=== PATIENT | female | born 1940 | race Caucasian/White ===

== ENCOUNTER 2018-11-05 19:22 | Inpatient (IN) | payer MEDICARE, OTHER ==
[~2018-11-05] VITALS: Ht 167.6 cm; Wt 73.5 kg
[2018-11-05] MEDS ORDERED: PRED20TA PO (19:45)
[2018-11-05] MEDS ORDERED: AZIT-12 PO (19:45)
[2018-11-05] MEDS ORDERED: PARO10TA3 PO (19:45)
[2018-11-05] MEDS ORDERED: NAPR-885 PO (19:45)
[2018-11-05] MEDS ORDERED: VITAD1000T PO (19:46)
[2018-11-05] MEDS ORDERED: MORPHINE 2 MG/ML 1ML SYRINGE (J2270) IV ONE (20:15)
[2018-11-05 20:29] LABS: BASO % 0.3 % (0.0-1.0); HEMATOCRIT 45.7 % (36.0-47.0); LYMPH # 0.5 10^3/uL (1.5-4.5); LYMPH % 4.7 % (24.0-44.0); MEAN CORPUSCULAR HEMOGLOBIN 29.6 pg (27.0-33.0); MEAN CORPUSCULAR HGB CONC 32.8 g/dl (32.0-36.5); MEAN CORPUSCULAR VOLUME 90.1 fl (80.0-96.0); MONO # 0.1 10^3/uL (0.0-0.8); NEUTROPHILS # 9.1 10^3/uL (1.8-7.7); NEUTROPHILS % 92.1 % (36.0-66.0); PLATELET COUNT, AUTOMATED 357 10^3/uL (150-450); RED BLOOD COUNT 5.07 10^6/uL (4.00-5.40); WHITE BLOOD COUNT 9.9 10^3/uL (4.0-10.0)
[2018-11-05 20:33] LABS: INR 1.01; PARTIAL THROMBOPLASTIN TIME 22.6 SECONDS (25.0-38.4)
[2018-11-05 20:41] LABS: BLOOD UREA NITROGEN 24 MG/DL (7-18); CALCIUM LEVEL 9.1 MG/DL (8.8-10.2); CARBON DIOXIDE LEVEL 32 MEQ/L (21-32); CHLORIDE LEVEL 101 MEQ/L (98-107); CREATININE FOR GFR 0.92 MG/DL (0.55-1.30); GLOMERULAR FILTRATION RATE > 60.0 (>39); GLUCOSE, FASTING 295 MG/DL (70-100); POTASSIUM SERUM 5.1 MEQ/L (3.5-5.1); SODIUM LEVEL 139 MEQ/L (136-145)
[2018-11-05] MEDS: HumaLOG INSULIN (NovoLOG) PER UNIT SC SCH (21:00)
[2018-11-05] MEDS: DOCUSATE SODIUM 100 MG CAP PO SCH (21:00)
--- NOTE | 2018-11-05 21:13 | REPVR ---
EXAM: CT Left Lower Extremity Without Contrast. Hip EXAM DATE/TIME: 11/05/2018 8:18 PM CLINICAL HISTORY: 78 years old, female; Injury or trauma; Fall; Initial encounter; Blunt trauma; Hip; Left; Additional info: Tr TECHNIQUE: Imaging protocol: CT of the Left lower extremity without contrast was performed. Exam focused on the hip. Coronal and sagittal reformatted images were created and reviewed. Radiation optimization: All CT scans at this facility use at least one of these dose optimization techniques: automated exposure control; mA and/or kV adjustment per patient size (includes targeted exams where dose is matched to clinical indication); or iterative reconstruction. COMPARISON: No relevant prior studies available. FINDINGS: Bones/joints: There is irregular transcervical fracture of the left femoral neck. There is severe varus angulation at the fracture site. There is osteopenia. There is a moderate amount of left joint effusion/serous effusion. Soft tissues: Normal. Bowel: There is moderate constipation. IMPRESSION: Fracture of the left femoral neck with severe varus angulation. Electronically signed by: Mp Linares On 11/05/2018 21:13:07 PM
--- NOTE | 2018-11-05 21:31 | REPVR ---
EXAM: CT Head Without Contrast EXAM DATE/TIME: 11/05/2018 8:18 PM CLINICAL HISTORY: 78 years old, female; Injury or trauma; Fall; Initial encounter; Blunt trauma (contusions or hematomas); Consciousness not specified; Additional info: Tr TECHNIQUE: Imaging protocol: Axial computed tomography images of the head without contrast. Radiation optimization: All CT scans at this facility use at least one of these dose optimization techniques: automated exposure control; mA and/or kV adjustment per patient size (includes targeted exams where dose is matched to clinical indication); or iterative reconstruction. COMPARISON: No relevant prior studies available. FINDINGS: Brain: There is no evidence of intracranial bleed. There are patchy areas of low density in the periventricular white matter consistent with chronic ischemic changes. Ventricles: Normal. No ventriculomegaly. Bones/joints: There is no evidence of fracture. Sinuses: Clear paranasal sinuses. Mastoid air cells: Clear mastoid air cells. Soft tissues: Unremarkable. IMPRESSION: 1. No evidence of fracture. 2. Chronic ischemic changes. Electronically signed by: Mp Linares On 11/05/2018 21:31:09 PM
--- NOTE | 2018-11-05 21:45 | REPVR ---
EXAM: CT Cervical Spine Without Contrast EXAM DATE/TIME: 11/05/2018 8:18 PM CLINICAL HISTORY: 78 years old, female; Injury or trauma; Fall; Initial encounter; Blunt trauma; Additional info: Tr TECHNIQUE: Imaging protocol: Axial computed tomography images of the cervical spine without contrast. Coronal and sagittal reformatted images were created and reviewed. Radiation optimization: All CT scans at this facility use at least one of these dose optimization techniques: automated exposure control; mA and/or kV adjustment per patient size (includes targeted exams where dose is matched to clinical indication); or iterative reconstruction. COMPARISON: No relevant prior studies available. FINDINGS: Vertebrae: There is mild retrolisthesis of C4 on C5 consistent with degenerative changes. The cervical vertebra otherwise are in alignment. The facet joints appear in alignment. There is no evidence of fracture. The dens appears intact and the lateral masses of C1 appear symmetric Discs/Spinal canal/Neural foramina: There is severe narrowing of the right C4 neural foramina secondary to facet hypertrophy and osteophyte formation. There is severe narrowing of the C6 neural foramina bilaterally secondary to facet hypertrophy and osteophyte formation. There is moderate narrowing of the C4-C5, C5-C6 disc spaces. There is moderate posterior disc protrusion C3-C4. There is moderate posterior osteophyte formation C4-C5 and C5-6. There is also severe neural foramina narrowing C7 bilaterally secondary to osteophyte formation. Soft tissues: There is no evidence of soft tissue swelling. Lungs: There is scarring in the apical portions of the lung. IMPRESSION: 1. Degenerative changes as described above. 2. No evidence of fracture. Electronically signed by: Mp Linares On 11/05/2018 21:45:25 PM
--- NOTE | 2018-11-05 21:45 | HPEPDOC ---
General Date of Admission 11/05/18 Date of Service: Nov 05, [address] Newman Attending Physician: KESHIA BARRAGAN DO Chief Complaint The patient is a 78-year-old female admitted with a reason for visit of FALL. Source: Patient, Family Exam Limitations: No limitations Timing/Duration: 4-6 hours, This evening Associated Symptoms: Cough, Shortness of breath, Mechanical fall History of Present Illness 78 yo female was sitting on a pillow on a high kitchen stool preparing dinner when she slipped backwards and fell off stool fracturing left hip at approx 530pm. no syncope, no LOC, no WARREN, no N, noV, no CP. Her last normal stool this AM. States minimal hip pain. Patient states has chronic SOB and chronic yellow cough (which jd edwards has placed her on azithromycin every 3 days) Home Medications Scheduled Abatacept (Orencia Clickjet) 125 Mg/1 Ml Auto.injct, 125 MG SC QWEEK, (Reported) Azithromycin (Azithromycin) 250 Mg Tablet, 250 MG PO 3XW, (Reported) QHS ON WEDNESDAY, WEDNESDAY, WEDNESDAY Megestrol Acetate (Megestrol Acetate) 400 Mg/10 Ml Oral.susp, 600 MG PO DAILY, (Reported) Naproxen (Naproxen) 500 Mg Tablet, 500 MG PO DAILY, (Reported) Paroxetine HCl (Paroxetine HCl) 20 Mg Tablet, 20 MG PO DAILY, (Reported) Prednisone (Prednisone) 20 Mg Tablet, 20 MG PO DAILY, (Reported) Vitamin D (Vitamin D3) 1,000 Unit Tablet, 1,000 UNITS PO DAILY, (Reported) Allergies Coded Allergies: No Known Allergies (Unverified , 11/05/18) Past Medical History Medical History Benign essential Tremor Rheumatoid Arthritis 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 Past surgical history: 4 plastic knuckles to right hand bunionectomy 1 oopherectomy left rotator cuff repair Social History: no tobacco, occasional EtOH, ; lives near [facility] and is vacationing in area currently Family History: Brother alive with DM Father age 66 DM complications Mother CVA A-FIB/CHADSVASC A-FIB History Current/History of A-Fib/PAF?: No Review of Systems Other systems 10 comprehensive systems reviewed and negative except as per HPI Physical Examination General Exam: Positive: Alert, Cooperative, No Acute Distress Eye Exam: Positive: PERRLA, Conjunctiva & lids normal, EOMI ENT Exam: Positive: Atraumatic, Mucous membr. moist/pink, Pharynx Normal Neck Exam: Positive: Supple, +2 carotid pulse wo bruit Chest Exam: Positive: Clear to auscultation (anteriorly), Rales Heart Exam: Positive: Rate Normal, Regular Rhythm, Normal S1, Normal S2; Negative: Murmurs Telemetry: Positive: No significant arrhythmia Abdomen Exam: Positive: Normal bowel sounds, Soft (NT ND) Extremity Exam: Positive: Normal pulses, Other (left leg shorter and outward turned than right leg); Negative: Clubbing, Cyanosis, Edema Skin Exam: Positive: Nl turgor and temperature, Other skin issue (Abrasion left pretibial area) Neuro Exam: Positive: Normal Speech, Normal Tone, Sensation Intact, Cranial Nerves 3-12 NL Psych Exam: Positive: Mental status NL, Mood NL, Oriented x [address] physical findings HEAD CT IMPRESSION: 1. No evidence of fracture. 2. Chronic ischemic changes. NECK CT: HIP CT:IMPRESSION: Fracture of the left femoral neck with severe varus angulation. Vital Signs Vital Signs Date Time Temp Pulse Resp B/P (MAP) Pulse Ox O2 Delivery O2 Flow Rate FiO2 11/05/18 21:30 88 16 142/71 (94) 97 Nasal Cannula 2.0 11/05/18 19:30 96.9 Laboratory Data Labs 24H Laboratory Tests 2 11/05/18 19:55: Immature Granulocyte % (Auto) 1.9, White Blood Count 9.9, Red Blood Count 5.07, Hemoglobin 15.0, Hematocrit 45.7, Mean Corpuscular Volume 90.1, Mean Corpuscular Hemoglobin 29.6, Mean Corpuscular Hemoglobin Concent 32.8, Red Cell Distribution Width 14.5, Platelet Count 357, Neutrophils (%) (Auto) 92.1H, Lymphocytes (%) (Auto) 4.7L, Monocytes (%) (Auto) 1.0, Eosinophils (%) (Auto) 0.0, Basophils (%) (Auto) 0.3, Neutrophils # (Auto) 9.1H, Lymphocytes # (Auto) 0.5L, Monocytes # (Auto) 0.1, Eosinophils # (Auto) 0.0, Basophils # (Auto) 0.0, Nucleated Red Blood Cells % (auto) 0.0, Prothrombin Time 13.0, Prothromb Time International Ratio 1.01, Activated Partial Thromboplast Time 22.6L, Anion Gap 6L, Glomerular Filtration Rate > 60.0, Blood Urea Nitrogen 24H, Creatinine 0.92, Sodium Level 139, Potassium Level 5.1, Chloride Level 101, Carbon Dioxide Level 32, Calcium Level 9.1 CBC/BMP Laboratory Tests 11/05/18 19:55 Red Blood Count 5.07, Mean Corpuscular Volume 90.1, Mean Corpuscular Hemoglobin 29.6, Mean Corpuscular Hemoglobin Concent 32.8, Red Cell Distribution Width 14.5, Neutrophils (%) (Auto) 92.1 H, Lymphocytes (%) (Auto) 4.7 L, Monocytes (%) (Auto) 1.0, Eosinophils (%) (Auto) 0.0, Basophils (%) (Auto) 0.3, Neutrophils # (Auto) 9.1 H, Lymphocytes # (Auto) 0.5 L, Monocytes # (Auto) 0.1, Eosinophils # (Auto) 0.0, Basophils # (Auto) 0.0, Calcium Level 9.1 Assessment/Plan 1) Fracture of the left femoral neck with severe varus angulation. - admit med/surg; ortho consulted (Dr Hamilton) thru the ED. Plan for surgery early next week (wednesday?) ; morphine prn pain control. Will need pulmonary clearance prior to surgery. 2) Osteoporosis 3) S/P Mechanical fall prior to admission 4) Elevated blood sugar due to prednisone - r/o diabetes - check HgA1c in AM. cover with low dose SSI. 5) Pulmonary fibrosis - consider pulmonary consult for clearance and optimization prior to surgery; continue with azithromycin every 3 days. 6) Rheumatoid arthritis - last dose of Orencia was 11/04/18. Is on chronic prednisone 20mg daily (will continue for now and then after seen by pulmonary, consider taper vs continued dose which may delay healing post operatively). Disposition - patient and want to have rehab and follow up hospital care closer to home. If extended hospitalization or rehab needed, then they prefer to be transferred closer to [place] CODE STATUS: DNR/DNI - patient has MOLST form at home but she has not yet filled it out. Discussion regarding code status, heroic measures, life support, CPR etc held with and patient. Patient appears realistic about severity of her Pulm fibrosis, RA and osteoporosis and requests DNR/DNI but is hesitant to complete MOLST FORM in hospital Plan / VTE VTE Prophylaxis Ordered?: Yes Plan Advanced Directives: Do Not Resuscitate (DNR), Do Not Intubate (DNI) KESHIA BARRAGAN DO Nov 05, 2018 21:42
[2018-11-05] MEDS ORDERED: GLUCOSE 4 GM CHEW TABLET PO PRN (22:00)
[2018-11-05] MEDS ORDERED: MOM 30ML SUSPENSION UDC PO PRN (22:00)
[2018-11-05] MEDS ORDERED: DEXTROSE 50% 50 ML SYRINGE IV PRN (22:00)
[2018-11-05] MEDS ORDERED: MAALOX 30 ML SUSP *UDC PO PRN (22:00)
[2018-11-05] MEDS ORDERED: GLUCAGON FOR INJ 1 MG VIAL (J1610) SC PRN (22:00)
[2018-11-05] MEDS ORDERED: PARO20TA3 PO (22:03)
[2018-11-05] MEDS ORDERED: OREN125I2 SC (22:03)
[2018-11-05] MEDS ORDERED: MEGE400S10 PO (22:03)
[2018-11-05] MEDS: HEPARIN SOD (PORCINE) 5000 UNITS/ML VIAL SC SCH (22:18)
[2018-11-05 23:40] VITALS: BP 164/85
[2018-11-06] VITALS (9 sets, daily range): BP systolic 94–164; BP diastolic 58–107
[2018-11-06] MEDS: ACETAMINOPHEN TAB 650MG DOSE (2X325MG) PO PRN ×2 (00:10→20:52)
[2018-11-06] MEDS: MORPHINE 4 MG/ML 1ML VIAL/SYRINGE (J2270) IV PRN ×3 (01:35→13:33)
[2018-11-06 07:12] LABS: HEMATOCRIT 44.6 % (36.0-47.0); HEMOGLOBIN 14.7 g/dl (12.0-15.5); MEAN CORPUSCULAR HEMOGLOBIN 29.9 pg (27.0-33.0); MEAN CORPUSCULAR VOLUME 90.8 fl (80.0-96.0); PLATELET COUNT, AUTOMATED 308 10^3/uL (150-450); RED BLOOD COUNT 4.91 10^6/uL (4.00-5.40)
[2018-11-06 07:37] LABS: HEMOGLOBIN A1c 7.8 %
[2018-11-06 07:41] LABS: ALBUMIN 2.5 GM/DL (3.2-5.2); ALT/SGPT 35 U/L (12-78); BILIRUBIN,TOTAL 0.8 MG/DL (0.2-1.0); BLOOD UREA NITROGEN 19 MG/DL (7-18); CALCIUM LEVEL 8.7 MG/DL (8.8-10.2); CARBON DIOXIDE LEVEL 32 MEQ/L (21-32); CHLORIDE LEVEL 102 MEQ/L (98-107); CREATININE FOR GFR 0.72 MG/DL (0.55-1.30); GLOMERULAR FILTRATION RATE > 60.0 (>39); GLUCOSE, FASTING 151 MG/DL (70-100); POTASSIUM SERUM 3.7 MEQ/L (3.5-5.1); SODIUM LEVEL 138 MEQ/L (136-145); TOTAL PROTEIN 6.1 GM/DL (6.4-8.2)
[2018-11-06] MEDS: VITAMIN D 1,000 INTERNATIONAL UNITS TABLET PO SCH (08:41)
[2018-11-06] MEDS: PARoxetine 20 MG TAB PO SCH (08:42)
[2018-11-06] MEDS: DOCUSATE SODIUM 100 MG CAP PO SCH ×2 (08:42→20:51)
[2018-11-06] MEDS: HumaLOG INSULIN (NovoLOG) PER UNIT SC SCH ×4 (08:42→20:58)
[2018-11-06] MEDS: HEPARIN SOD (PORCINE) 5000 UNITS/ML VIAL SC SCH ×2 (08:43→20:51)
[2018-11-06] MEDS ORDERED: predniSONE 20 MG TAB PO SCH (09:00)
--- NOTE | 2018-11-06 11:53 | IPNPDOC ---
Text Note Date of Service The patient was seen on 11/06/18. NOTE Subjective: Patient is a 78-year-old female with a PMHx of Pulmonary fibrosis (oxygen dependent on 4L O2, steroid dependent on 20mg Prednisone), RA, Osteo porosis, Anxiety, Benign essential tremor who presents to the emergency room after she had slipped and fell off of her stool while at home. Patient sustained severe left hip pain and came to ER for further evaluation. Imaging revealed she had a fracture of her left hip. Hospitalist service was called for further evaluation and treatment. Surgery was called on consultation. Patient was seen and examined at the bedside. Currently, patient reports that they're still expressing left hip pain with movement. They deny chest pain, shortness breath or palpitations. They deny abdominal pain, constipation, or discomfort with urination. Objective: Vitals (See below) General: Lying in bed, no acute distress, comfortable, AAOx3 HEENT: NC, AT CVS: RRR, +S1S2 Lungs: Fair air entry b/l, -w/r/r Abdomen: Soft, ND, NT Extremities: - Edema, - Calf tenderness, left leg with external rotation and slightly shorter than right leg Assessment and plan: Left hip pain - 2/2 fracture of the left femoral neck with severe varus angulation - likely 2/2 mechanical fall - Patient fallen off of a stool while in her kitchen - Physical reveals severe left hip tenderness - CT extremity 11/05: Fracture of the left femoral neck with severe varus angulation. - Orthopedic surgery has been called on consultation; despite potential surgery on Wednesday - Given patient's pulmonary fibrosis and corticosteroid dependence; will consult pulmonary for optimization Mechanical fall - CT head 11/05:1. No evidence of fracture. 2. Chronic ischemic changes. - CT cervical spine 11/05: 1. Degenerative changes as described above. 2. No evidence of fracture. - Edema. Pain control Pulmonary fibrosis - No evidence of exacerbation at this time - Patient is oxygen dependent at 4 L of nasal cannula - Patient is corticosteroid dependent with prednisone 20 mg - Continue with inhaled therapy as ordered - Pulmonary consulted New onset diabetes - A1c of 7.8 - Will continue with insulin sliding scale while inpatient - Will adjust diet to consist carbohydrate diet RA - Patient receives infusions of Abatacept as an outpatient - Continue with prednisone Osteoporosis Anxiety - c/w paroxetine Vitamin D deficiency - Continue with supplementation Benign essential tremor DVT prophylaxis - c/w Heparin VS,Fishbone, I+O VS, Fishbone, I+O Laboratory Tests 11/05/18 19:55 Red Blood Count 5.07, Mean Corpuscular Volume 90.1, Mean Corpuscular Hemoglobin 29.6, Mean Corpuscular Hemoglobin Concent 32.8, Red Cell Distribution Width 14.5, Neutrophils (%) (Auto) 92.1 H, Lymphocytes (%) (Auto) 4.7 L, Monocytes (%) (Auto) 1.0, Eosinophils (%) (Auto) 0.0, Basophils (%) (Auto) 0.3, Neutrophils # (Auto) 9.1 H, Lymphocytes # (Auto) 0.5 L, Monocytes # (Auto) 0.1, Eosinophils # (Auto) 0.0, Basophils # (Auto) 0.0, Calcium Level 9.1 11/06/18 07:01 Red Blood Count 4.91, Mean Corpuscular Volume 90.8, Mean Corpuscular Hemoglobin 29.9, Mean Corpuscular Hemoglobin Concent 33.0, Red Cell Distribution Width 14.4, Calcium Level 8.7 L, Aspartate Amino Transf (AST/SGOT) 19, Alanine Aminotransferase (ALT/SGPT) 35, Alkaline Phosphatase 64, Total Bilirubin 0.8, Total Protein 6.1 L, Albumin 2.5 L Vital Signs Date Time Temp Pulse Resp B/P (MAP) Pulse Ox O2 Delivery O2 Flow Rate FiO2 11/06/18 06:24 18 4.0 11/06/18 06:00 98.3 80 120/70 (87) 99 11/05/18 22:15 Nasal Cannula I&O- Last 24 Hours up to 6 AM 11/06/18 06:00 Intake Total 0 ml Output Total 600 ml Balance -600 ml LAZARO KINGSLEY MD Nov 06, 2018 11:53
--- NOTE | 2018-11-06 14:03 | REP ---
Clinical: Trauma. Fracture. Technique: AP and cross-table lateral views of the left hip. Findings: Displaced left femoral neck fracture. Impression: Acute displaced left femoral neck fracture. Electronically Signed by Dada Foreman MD 11/06/2018 07:50 A
--- NOTE | 2018-11-06 14:03 | REP ---
Clinical: Hip fracture. Comparison: Single AP view of the chest. Findings: The cardiac silhouette is grossly normal for portable technique. The lung chin demonstrate diffuse chronic interstitial changes with scattered fibrosis and scarring. Subtle superimposed infiltrates as well as possible small pleural reactions cannot be excluded. No pneumothorax. Skeletal structures are intact. Impression: Presumed chronic interstitial changes and fibrosis/scarring. No prior exams for comparison. Electronically Signed by Dada Foreman MD 11/06/2018 07:48 A
--- NOTE | 2018-11-06 16:21 | CR ---
DATE OF CONSULTATION: 11/06/[address] nAgeles to evaluate Ms. Aleman for preoperative pulmonary optimization. HISTORY OF PRESENT ILLNESS: Ms. Aleman is a 78-year-old white female who presented to the emergency department last evening after falling off a stool, approximately 4 feet high, while she was chopping vegetables. She fell and fractured her left hip. The time of the fall was approximately 5:30 p.m. No syncope. No loss of consciousness. No headache. She felt well prior to this event. The plan is for surgery tomorrow afternoon. Because of her history of pulmonary fibrosis, pulmonary was asked to see her for optimization. Ms. Aleman follows with refrigeration engineer, Dr. Rubens Sidhu, in [place]. She was diagnosis with pulmonary fibrosis approximately two and a half years ago. The etiology for her pulmonary fibrosis is thought secondary to rheumatoid arthritis plus or minus a contribution from methotrexate. At her baseline, she notes dyspnea on exertion. She believes she could walk approximately 1/4 of a block very slowly. Most of her limitary is respiratory, though her joints have limited her at times. She notes a daily cough. Most of the time she swallows her secretions; but if she expectorates, it is yellow. When she last saw Dr. Rubens Sidhu, in June 2018, she was started on prednisone 20 mg daily. Because of her cough and fear of developing an infection, she was started on azithromycin every Wednesday, Wednesday, Wednesday. She has been on and off prednisone for many years. She believes she has been on prednisone most of the past year. She denies chest pain or pressure. No paroxysmal nocturnal dyspnea (PND) or orthopnea. No lower extremity edema or history of deep vein thrombosis (DVT). No gastroesophageal reflux disease (GERD) symptoms. No persistent fevers, chills or drenching night sweats. In regards to her rheumatoid arthritis, she has been on methotrexate in the past. She has been on prednisone for this process. She has never been on Gold or Plaquenil. She has been on Humira and more recently Abatacept. She has been on oxygen continuously for 18 months to 2 years. She has been diagnosed with pneumonia two to three times in the past, never hospitalized. She has been diagnosed with bronchitis two to three times in her life. There has not been concerned regarding possible asthma in the past. She has been tried on different "puffers" with no change in her symptoms. ALLERGIES: No known drug allergies. MEDICATIONS ON ADMISSION: - abatacept 125 mg subcutaneous every week - azithromycin 250 mg by mouth every Wednesday, Wednesday, Wednesday - megestrol 600 mg by mouth daily - Naproxen 500 mg by mouth daily - paroxetine 20 mg by mouth daily - prednisone 20 mg by mouth daily - vitamin D 1000 mg by mouth daily PAST MEDICAL HISTORY: 1. Rheumatoid arthritis, diagnosis in 1968. (a). Past medications include Humira, methotrexate, prednisone, and abatacept. 2. Pulmonary fibrosis felt secondary to rheumatoid arthritis plus or minus methotrexate (a). On chronic prednisone at 20 mg daily for six months. (b). On every Wednesday, Wednesday, Wednesday azithromycin for 6 months. (c). Follows with Dr. Rubens Sidhu in [place]. 3. Osteoporosis. 4. Anxiety. 5. Benign essential tremor. 6. Status post four plastic knuckles in her right hand secondary to rheumatoid arthritis 7. Status post bunionectomy. 8. Status post oophorectomy. 9. Status post left rotator cuff repair. SOCIAL HISTORY: Ms. Aleman lives near [place], [place] and is vacationing in this region. She does not smoke. Rare alcohol usage. She is and lives with her . FAMILY HISTORY: Her brother is alive and has diabetes mellitus. Her father is and at age 66 from complications of diabetes mellitus. Her mother from a cerebrovascular accident (CVA). REVIEW OF SYSTEMS: Per history of present illness. Remainder of review of systems is negative. PHYSICAL EXAMINATION: GENERAL: Ms. Aleman is lying in bed in no acute distress. She can complete full sentences. No cough on evaluation. VITAL SIGNS: Temperature 98.3 which is her T-max, pulse 80, respiratory rate 18, blood pressure 120/70 with a MAP 87. SPO2 99% on 4 liters. HEENT: Anicteric. Pupils equal, round, and reactive to light and accommodation (PERRLA) Nares: Patent bilaterally. Moist mucosa. Oropharynx clear, no lesions. Fair dentition. NECK: Supple, without jugular venous distension (JVD), thyromegaly or masses, trachea is midline. LYMPH: Without cervical or supraclavicular lymphadenopathy. CHEST: Normal shape. LUNGS: Symmetric excursion, diffuse inspiratory Velcro crackles. No wheeze or rhonchi. Normal I:E. No accessory muscle usage or retractions. CARDIOVASCULAR: Regular rate and rhythm with a normal S1-S2, no murmur, rub or gallop appreciated. ABDOMEN: Positive bowel sounds, soft, nondistended, nontender, no hepatosplenomegaly or masses appreciated. EXTREMITIES: Warm and well profuse without clubbing, cyanosis or edema, palpable pedal pulses bilaterally. NEUROLOGIC: Alert, awake, oriented x3. Generalized tremor. PSYCHIATRIC: Appropriate affect. LABORATORY DATA: Complete blood count (CBC) from this morning showed a hemoglobin of 14.7, hematocrit 44.6, platelet count 308,000, white blood cell count 14,000. On admission white blood count (WBC) was 9900 with a differential of 92% neutrophils, 5% lymphocytes. Chemistries show a sodium 138, potassium 3.7, chloride 102, bicarbonate 32, anion gap 4, BUN 19, creatinine 0.75, glucose 151, hemoglobin A1c 7.8, calcium 8.7, total bilirubin 0.8, AST 19, ALT 35, alkaline phosphatase 64, total protein 6.1, albumin 2.5. INR from yesterday 1.01, PTT 22.8. I reviewed her chest x-ray, as well as her report from earlier today. That x- ray shows normal appearing cardiac silhouette with likely enlarged pulmonary vascular shadows. Likely normal to slightly enlarged mediastinal and hilar regions. No consolidated regions. Diffuse interstitial changes consistent with pulmonary fibrosis. I reviewed her hip x-ray report. That report stated acute displaced left femoral neck fracture. I reviewed her head CT report, which showed no evidence of fracture. Chronic ischemic changes. IMPRESSION: 1. Pulmonary fibrosis. Per Ms. Aleman it is felt her fibrosis is secondary to rheumatoid lung plus or minus a contribution from methotrexate. She has been on prednisone 20 mg daily for at least 6 months and on prednisone daily at some level for most of the past year and intermittently before that. She has been on oxygen for 18 months to 2 years. 2. Chronic cough for which she is on azithromycin three times a week. Most likely the cough is multifactorial with a significant contribution from traction bronchiectasis. 3. Status post left femoral head fracture, plans for surgery tomorrow afternoon. RECOMMENDATIONS: 1. Because of her length of time that she has been on prednisone, I recommend stress dosing with hydrocortisone prior to surgery. I do not feel that she needs stress dosing for any significant length of time. 2. Recommend the minimum fiO2 necessary to obtain appropriate saturations in the low 90% for surgery to prevent any potential worsening of pulmonary fibrosis from oxygen free radicals. 3. If these recommendations are followed, I have no contraindication from a pulmonary prospective for her undergoing surgery for her fractured left hip. Thank you for this consultation. At this time, there is nothing further to offer and she is established with a refrigeration engineer in [place] for her underlying pulmonary issues, which are not the reason for hospitalization. We will sign off for now. Please contact the pulmonary service if there are any further problems/difficulties. NORBERTO
--- NOTE | 2018-11-06 18:15 | CR ---
DATE OF CONSULTATION: 11/06/2018 INDICATION: Left hip fracture. HISTORY OF PRESENT ILLNESS: Hannah is a pleasant 78-year-old female accompanied by her daughter at the bedside who had a mechanical fall on 11/05/2018. She had immediate pain in her left hip and was unable to bear weight. CAT scan in the emergency department revealed a displaced femoral neck fracture. Patient has fairly significant pulmonary fibrosis. She was admitted to the hospitalist service. Patient at the bedside was having moderate pain. I observed she did have tremors and she informed me it was either a resting or an intention tremor. She denies Parkinson's. Patient denied numbness in her foot. For the patient's full past medical history, past surgical history, medications, allergies, social history and review of systems please see admitting history and physical (H and P), which I reviewed. PHYSICAL EXAMINATION: Exam reveals an elderly female in no distress. Alert and oriented times three. NEUROLOGIC: Appropriate mood and affect. CARDIOVASCULAR: 2+ PT pulse. SKIN OF THE LEFT HIP: Intact without open lesions. LEFT LEG: Was shortened an axillary rotated. The patient was nontender at the knee. She fired extensor hallucis longus (EHL), flexor hallucis longus (FHL), tibialis anterior (TA) and gastroc-soleus (GS). Sensation light touch grossly intact distally. CT scan of the left hip revealed a significantly displaced left femoral neck fracture. X-rays also confirm the same. ASSESSMENT/PLAN: Ms. Aleman is a 78-year female with a displaced left femoral neck fracture. This will require hemiarthroplasty. We discussed cemented versus noncemented hemiarthroplasty. We discussed total hip arthroplasty versus manuela and she has agreed to proceed with a cemented hemiarthroplasty. At the time of this dictation, patient is going to be evaluated by the splicer operator and we are awaiting medical optimization. Hopefully we can proceed with surgery on 11/07/2018. She will remain under the care of the hospitalist.
[2018-11-06] MEDS: HYDROCORTISONE 100 MG/2 ML VIAL (J1720) IV SCH (18:37)
[2018-11-07] VITALS (16 sets, daily range): BP systolic 131–174; BP diastolic 61–101
[2018-11-07] MEDS: MORPHINE 4 MG/ML 1ML VIAL/SYRINGE (J2270) IV PRN ×3 (00:37→15:36)
[2018-11-07] MEDS: HYDROCORTISONE 100 MG/2 ML VIAL (J1720) IV SCH ×3 (02:23→21:55)
[2018-11-07] MEDS: HumaLOG INSULIN (NovoLOG) PER UNIT SC SCH ×4 (07:30→21:31)
[2018-11-07] MEDS ORDERED: NS 1,000 ML IV SCH (12:00)
[2018-11-07] MEDS ORDERED: ceFAZolin 1GM INJ (J0690 PER 500MG) As Ordered ONE (14:08)
--- NOTE | 2018-11-07 15:59 | IPNPDOC ---
Subjective Date Seen The patient was seen on 11/07/18 at approximately 9:30am. Subjective Chief Complaint/HPI Patient is a 78yo female who presented to the ED on 11/05/2018 after f alling off a stool onto her left side. Pt c/o pain and tenderness around the area of her left hip and underwent subsequent radiography which showed a left hip fracture. Pt was seen and examined this morning while lying upright in bed after just receiving her morning administration of morphine. Pt states her overall pain is unchanged from yesterday, currently rating a 2-3 on a scale of 1-10. Pt is scheduled for hip surgery today at 14:00 and as a result is NPO. Pt denies numbness or paresthesias of LE B/L. Pt is currently on 4L O2 NC, which is her home dependence dose, with accompanying cough when breathing deeply. Pt denies SOB or increased work of breathing. Pt also denies headache, feeling feverish, chest pain, chest pressure, palpitations, abdominal pain, feeling nauseated, vomiting, or LE edema. Pt has not had a BM since presenting to the ED and has voided twice using a bedp an. General: Denies: Chills, Night Sweats Cardiovascular: Denies: Chest Pain, Palpitations, Edema Gastrointestinal: Denies: Nausea, Vomiting, Abdominal Pain Genitourinary: Denies: Dysuria, Frequency Musculoskeletal: Reports: Leg Pain (LLE hip pain and tenderness around left hip) Neurological: Denies: Weakness, Numbness Objective Physical Examination General Exam: Positive: Alert, Cooperative Neck Exam: Positive: Supple, +2 carotid pulse wo bruit Chest Exam: Positive: Normal air movement (4L O2 NC with limited accessory muscle use on inspection), Other (inspiratory crackles B/L posteriorly on inspiration; cough brought on by deep breathing) Heart Exam: Positive: Rate Normal, Regular Rhythm, Normal S1, Normal S2; Negative: Murmurs Telemetry: Positive: No significant arrhythmia Abdomen Exam: Positive: Normal bowel sounds (in all four quadrants), Soft (ND); Negative: Tenderness Extremity Exam: Positive: Normal pulses (2+ radial, posterior tibial), Other (l eft leg shorter and outward turned than right leg); Negative: Edema Skin Exam: Positive: Nl turgor and temperature, Other skin issue (Left hip area does not have incrteased erythema, swelling, or ecchymosis as compared to the right hip area. Abrasion left pretibial area) Neuro Exam: Positive: Normal Speech, Sensation Intact (UE and LE intact to light touch b/l), Other (Benign essential tremor of UE b/l. 4/5 muscle strength testing, 5/5 muscle strength testing RLE) Psych Exam: Positive: Mental status NL, Mood NL, Oriented x 3 Assessment /Plan Assessment Left hip pain 2/2 femoral neck fracture with severe varus angulation 2/2 mechanical fall -c/w stress dosing of Hydrocortisone (day 2) for anti-inflammation, then plan to begin tapering dose tomorrow (11/08) -c/w morphine prn for pain/analgesia (day 3) -pt scheduled for hip surgery this afternoon Chronic pulmonary fibrosis -pt currently at 98% saturation on 4L O2 NC with no signs of exacerbation -pt is O2 dependent at home with 4L O2 NC -pt is steroid dependent at home with 20mg Prednisone -c/w azithromycin from outpatient (250mg PO MoWeFr) -c/w inhaled medication treatments as ordered -pulmonary service consulted New onset diabetes -Hgb A1c of 7.8% on 11/06/2018 -last measured fasting sGlu was 151, down from previous yesterday of 177 -pt is currently NPO for upcoming surgery -continue with SSI RA -pt receives Abatacept on outpt basis Osteoporosis Vitamin D deficiency -c/w Vit D supplementation as ordered Anxiety -c/w paroxetine medication Benign essential tremor DVT prophylaxis -c/w heparin administration Plan/VTE VTE Prophylaxis Ordered?: Yes VS, I&O, 24H, Fishbone Vital Signs/I&O Vital Signs Date Time Temp Pulse Resp B/P (MAP) Pulse Ox O2 Delivery O2 Flow Rate FiO2 11/07/18 11:37 4.0 11/07/18 09:35 18 11/07/18 06:32 162/98 (119) 11/07/18 06:27 97.8 80 98 11/05/18 22:15 Nasal Cannula I&O- Last 24 Hours up to 6 AM 11/07/18 06:00 Intake Total 1940 ml Output Total 1000 ml Balance 940 ml Laboratory Data 24H LABS Laboratory Tests 2 11/06/18 17:05: Bedside Glucose (Misc Panel) 208H 7/7/19 19:57: Bedside Glucose (Misc Panel) 310H 11/07/18 06:31: Bedside Glucose (Misc Panel) 174H 11/07/18 11:44: Bedside Glucose (Misc Panel) 137H GME ATTESTATION GME ATTESTATION My faculty preceptor for this patient encounter was physically present during the encounter and was fully available. All aspects of the patient interview, examination, medical decision making process, and medical care plan development were reviewed and approved by the faculty preceptor. The faculty preceptor is aware and concurs with the plan as stated in the body of this note and will attest to such by his/her cosignature. ATTENDING NOTE I, Mile Kingsley, have independently examined this patient and performed my own physical exam, as well as reviewed the documentation and edited where necessary. I have discussed in detail with the resident / student the findings and plan of treatment as documented by the resident / student and edited their note. I agree with their findings and treatment plan and have edited their documentation. I will continue to follow the patient during this hospital stay. GEORGETTE HUNT PGY-1 Nov 07, 2018 14:30 MILE KINGSLEY MD Nov 07, 2018 17:10
[2018-11-07] MEDS ORDERED: dexameTHASONE 4 MG/ML 1ML VIAL (J1100) As Ordered ONE (16:19)
[2018-11-07] MEDS ORDERED: LIDOCAINE 2% INJ 100 MG/5 ML SDV (FOR ANES.) As Ordered ONE (16:19)
[2018-11-07] MEDS ORDERED: PROPOFOL 200 MG/20 ML VIAL As Ordered ONE ×2 (16:19→19:03)
[2018-11-07] MEDS ORDERED: ONDANSETRON 4MG/2ML VIAL (J2405) As Ordered ONE (16:19)
[2018-11-07] MEDS ORDERED: MIDAZOLAM INJ 2 MG/2 ML VIAL (J2250) As Ordered ONE (16:20)
[2018-11-07] MEDS ORDERED: KETAMINE HCL 200 MG/20 ML VIAL As Ordered ONE (16:30)
[2018-11-07] MEDS ORDERED: ceFAZolin 2 GM/D5W 50 ML IV BAG (J0690 PER 500MG) As Ordered ONE (16:33)
--- NOTE | 2018-11-07 16:37 | ECGEPIP ---
[facility] Test Date: 2018-11-07 Pat Name: JEREMY HAMLIN Department: Room: Z3017-47 Gender: Female Board Catcher: ALEX : 1940 Requested By: Kristofer Son Order Number: [id number] Reading MD: Cherelle Lopez Measurements Intervals [place] Rate: 83 P: 41 OK: 148 QRS: QRSD: 87 T: 29 QT: 362 QTc: 427 Interpretive Statements SINUS RHYTHM WITH MARKED SINUS ARRHYTHMIA BORDERLINE LEFT AXIS DEVIATION MINIMAL VOLTAGE CRITERIA FOR LVH, CONSIDER NORMAL VARIANT Electronically Signed on 11-07-2018 16:37:40 EDT by Cherelle Lopez
[2018-11-07] MEDS ORDERED: BUPIVACAINE LIPOSOME/PF 1.3% 20ML VIAL (13.3MG/ML)(EXPAREL)(C9290 PER1MG) As Ordered ONE (16:58)
[2018-11-07] MEDS ORDERED: ePHEDrine SULFATE 25 MG/5 ML(5MG/ML) SYRINGE As Ordered ONE (18:05)
[2018-11-07] MEDS ORDERED: PHENYLEPHRINE INJ 10MG/ML VIAL (J2370) As Ordered ONE (18:08)
[2018-11-07] MEDS ORDERED: ACETAMINOPHEN 1000MG 100ML IV BTL (OFIRMEV) (J0131 PER 10MG) As Ordered ONE (19:54)
[2018-11-07] MEDS ORDERED: LR 1,000 ML IV SCH (21:00)
[2018-11-07] MEDS ORDERED: AZITHROMYCIN 250 MG TAB PO SCH (21:00)
[2018-11-07] MEDS ORDERED: ONDANSETRON 4MG/2ML VIAL (J2405) IV PRN (21:00)
[2018-11-07] MEDS ORDERED: PERCOCET 5MG/325MG TAB PO PRN (21:00)
[2018-11-07] MEDS ORDERED: fentaNYL 100 MCG/2 ML INJECTION (J3010) IV PRN (21:00)
[2018-11-07] MEDS: VITAMIN D 1,000 INTERNATIONAL UNITS TABLET PO SCH (21:30)
[2018-11-07] MEDS: DOCUSATE SODIUM 100 MG CAP PO SCH ×2 (21:30→21:55)
[2018-11-07] MEDS: PARoxetine 20 MG TAB PO SCH (21:30)
[2018-11-08] VITALS (8 sets, daily range): BP systolic 114–171; BP diastolic 68–145; O2SAT 93
[2018-11-08] MEDS: ceFAZolin SOD 1 GM in D5W MINI-BAG PLUS 50 ML IV SCH ×2 (01:13→09:35)
[2018-11-08] MEDS: HYDROCORTISONE 100 MG/2 ML VIAL (J1720) IV SCH ×2 (01:13→09:39)
[2018-11-08] MEDS: NORCO, ANEXSIA 5/325MG TABLET (HYDROcodone/ACETAMINOPHEN) PO PRN ×3 (01:27→17:22)
[2018-11-08] MEDS: HumaLOG INSULIN (NovoLOG) PER UNIT SC SCH ×4 (07:30→20:45)
--- NOTE | 2018-11-08 07:53 | RO ---
DATE OF PROCEDURE: 11/07/2018 PREOPERATIVE DIAGNOSIS: Displaced left femoral neck fracture. POSTOPERATIVE DIAGNOSIS: Displaced left femoral neck fracture. PROCEDURE: Left hip cemented hemiarthroplasty. SURGEON: Dr. Robert Hamilton. HYDRATION PLANT OPERATOR: NIKKIE Alcantar ANESTHESIA: Spinal. IV FLUIDS: Lactated Ringer's. ESTIMATED BLOOD LOSS: 150 mL IMPLANTS: DePuy [place] size 5 cemented stem with a +0 neck length and 47 monopolar head and antibiotic cement. PROCEDURE: The patient was identified in preoperative holding area. The left hip marked by myself. She had been cleared for surgery by the hospitalist and pulmonology. She was brought to the operating room where spinal anesthesia was induced. She received appropriate IV antibiotics within 1 hour of incision. She was placed into the right side down lateral decubitus position with an axillary roll on a beanbag and all bony prominences were well padded. She had a Venodyne boot on the right lower extremity for DVT prophylaxis. The left leg and hip were then prepped and draped in normal sterile fashion with Chloraprep. Prior to incision, time-out was performed per hospital protocol. Del Prieto was present for the entire procedure and participated in all essential portions of the procedure. This included patient positioning, draping, holding retractors, driving the leg during the surgical approach and broaching and he was instrumental in reducing and dislocating the hip during trialing and assisted with the wound closure. A time-out was then performed per hospital protocol. A curvilinear incision was made with the 10 blade centered over the posterior third of the greater trochanter. Hemostasis electrocautery. Dissection down to the tensor fascia. This was carefully opened with curved [place] scissors. There was minimal gluteus iman muscle to split. The bursa was released off the posterior aspect of the femur. The hip was internally rotated. Several vessels were cauterized. Then the piriformis was identified and released off the posterior femur with cautery and tagged for later repair. A Garcia was used to elevate the gluteus minimus off of the capsule and the retractor placed. Tomas retractor placed posteriorly and then a T capsulotomy was performed with the cautery. Capsule limbs were tagged with #1 Vicryl suture for later repair. Femoral neck fracture site was identified. Two threaded Steinmann pins were placed into the femoral head and then a Garcia was used to dislocate the femoral head. This was sized to 40 on the back table. It was sent off for pathology. The cutting guide template for the femoral neck cut was then used and an oscillating saw was used to make a new femoral neck cut one fingerbreadth proximal to the lesser trochanter. Box chisel was used to gain access to the lateral portion of the femoral canal, then a canal finder and then I reamed by hand and then also used the lateralizer. I sequentially broached up to a size 5 making sure to dial in some anteversion for improved hip stability. I then trialed the 47 and 48 femoral head and the 47 was felt to fit better. I then trialed with the 5 stem 0 neck length and 47 head and this gave excellent stability. Implants were removed. I then measured for a cement restrictor and a size 3 cement restrictor was placed. I then rasped the femoral canal with pulse lavage rasp first by hand and then with irrigation. Ray-Moises placed into the canal and into the acetabulum. Antibiotic cement was then mixed on the back table under fourth generation technique. Sponge removed from the canal and the cement gun used to fill the femur with cement and then it was pressurized. The stem was placed by hand and dialed in about 10 degrees of anteversion. Excess cement removed with curettes. The cement was allowed to harden for 15 minutes and confirmed it was fully hardened with the fresh blade in the patient and then all remaining cement on the back table was hardened. The Ray-Moises was removed from the acetabulum and then I used the pulse lavage to extensively irrigate the acetabulum and the entire surgical wound. I then retrialed with the 0 neck length and 47 head. This gave excellent stability in position of sleep. The hip started to subluxate at 70 degrees of internal rotation, would dislocate at 80 degrees of internal rotation. There was no shuck. The rectus was not excessively tight when the knee was flexed to 90. I felt that a +5 neck length would excessively lengthen her left leg. The trials were removed and then I reirrigated the surgical wound and then a final 47 monopolar head +0 neck length was malleted onto the Leroy taper and confirmed to be secured. The hip was reduced. Final stability check was excellent. Then proceeded with the capsular closure. The tagged limbs of the capsulotomy were tied together and then #1 Vicryl in [id number] fashion just posterior to that to close down the entire posterior capsule. 2 mm drill bit used to create a drill hole in the greater trochanter and a PDS suture was used as a passing suture to bring those sutures up through the greater trochanter. Snap was used to solis the abductors as they attached to the greater trochanter and the piriformis was retrieved through that. The hip was then abducted and those sutures were tied by hand. I then reirrigated the surgical wound. The fascia was then reapproximated with [id number] #1 Vicryl and then closed distally with [id number] #1 interrupted and then it was run for the proximal half of the new #1 Vicryl. This gave a watertight closure. There was excellent hemostasis. I then reirrigated. A deeper space #2-0 Vicryl layer and then a #2-0 subcuticular closure followed by running #3-0 Monocryl with Steri-Strips for the suture tails and then Dermabond over the skin. I then placed Adaptic and 4x4 gauze and a Tegaderm. All counts correct times two. Complications none. The patient was placed onto her hospital bed. She had 2+ DP and PT pulses. She will be under the care of the hospitalist. She will have 24 hours antibiotic prophylaxis. She will be weightbearing as tolerated with a walker with posterior hip precautions.
[2018-11-08] MEDS ORDERED: LEVALBUTEROL 1.25 MG/0.5 ML CONCENTRATE NEB INH PRN (08:45)
--- NOTE | 2018-11-08 08:55 | REP ---
LEFT HIP, TWO VIEWS: Two views of the left hip performed. There is a left hip prosthesis placed, in good position. The structure are well aligned. Visualized osseous structures are intact. Electronically Signed by Orlin Coronado MD 11/09/2018 09:47 A
[2018-11-08 09:28] LABS: HEMATOCRIT 42.8 % (36.0-47.0); MEAN CORPUSCULAR HEMOGLOBIN 30.2 pg (27.0-33.0); MEAN CORPUSCULAR HGB CONC 32.7 g/dl (32.0-36.5); MEAN CORPUSCULAR VOLUME 92.4 fl (80.0-96.0); PLATELET COUNT, AUTOMATED 299 10^3/uL (150-450); RED BLOOD COUNT 4.63 10^6/uL (4.00-5.40); WHITE BLOOD COUNT 11.7 10^3/uL (4.0-10.0)
[2018-11-08] MEDS: DOCUSATE SODIUM 100 MG CAP PO SCH ×2 (09:35→19:58)
[2018-11-08] MEDS: PARoxetine 20 MG TAB PO SCH (09:35)
[2018-11-08] MEDS: VITAMIN D 1,000 INTERNATIONAL UNITS TABLET PO SCH (09:35)
[2018-11-08 09:56] LABS: CALCIUM LEVEL 8.9 MG/DL (8.8-10.2); CREATININE FOR GFR 0.98 MG/DL (0.55-1.30); GLOMERULAR FILTRATION RATE 58.6 (>39); POTASSIUM SERUM 4.2 MEQ/L (3.5-5.1)
[2018-11-08] MEDS ORDERED: RIVAROXABAN 10 MG TAB (XARELTO) PO SCH (18:00)
--- NOTE | 2018-11-08 19:08 | IPNPDOC ---
Subjective Date Seen The patient was seen on 11/08/18 at 9:20. Subjective Chief Complaint/HPI Patient is a 78yo female who presented to the ED on 11/05/2018 after falling off a stool onto her left side. Pt c/o pain and tenderness around the area of her left hip and underwent subsequent radiography which showed a left hip fracture. Pt underwent left hip cemented hemiarthroplasty yesterday (11/07/18) with minimal accompanying blood loss and proper insertion and positioning of hardware as confirmed by post-operative left hip radiography. Surgery was performed by Dr. Hamilton. Pt was seen and examined while lying upright in bed. Pt states her overall pain level is "good," currently rating a 2 on a scale of 1-10. Pt denies numbness or paresthesias of LE B/L. Pt is currently on 4L O2 NC, which is her home dependence dose, with improvement in cough from yesterday. Pt denies SOB or increased work of breathing. Pt also denies headache, feeling feverish, chest pain, chest pressure, palpitations, abdominal pain, feeling nauseated, vomiting, or LE edema. Pt has not had a BM since presenting to the ED and voided twice overnight using a bedpan. Pt is tolerating diet of solids and liquids. Constitutional: Denies: Chills, Fever, Night Sweats Pulmonary: Reports: Cough (improved from yesterday); Denies: Dyspnea Cardiovascular: Denies: Chest Pain, Palpitations, Edema Gastrointestinal: Denies: Nausea, Vomiting, Abdominal Pain Genitourinary: Denies: Dysuria, Frequency Objective Physical Examination General Exam: Positive: Alert, Cooperative Neck Exam: Positive: Supple, +2 carotid pulse wo bruit Chest Exam: Positive: Other (inspiratory crackles B/L posteriorly on inspiration; cough brought on by deep breathing); Negative: Clear to auscultation (inspiratory crackles b/l; expiratory wheeze b/l) Heart Exam: Positive: Rate Normal, Regular Rhythm, Normal S1, Normal S2; Negative: Murmurs Abdomen Exam: Positive: Normal bowel sounds (in all four quadrants), Soft (ND); Negative: Tenderness (to palpation of lower extremities b/l) Extremity Exam: Positive: Normal pulses (2+ radial), Tenderness (lower extremities b/l to palpation ); Negative: Edema Skin Exam: Positive: Other skin issue (surgical incision over left hip appears to be healing well with no pronounced erythema, swelling, or discharge) Neuro Exam: Positive: Normal Speech, Sensation Intact (UE and LE intact to light touch b/l), Other (Benign essential tremor of UE b/l. 4/5 muscle strength testing, 5/5 muscle strength testing RLE); Negative: Strength at 5/5 X4 ext (4/5 muscle strength testing of left lower extremity; 5/5 muscle strength testing of right lower extremity. ) Psych Exam: Positive: Mental status NL, Mood NL (pleasant), Oriented x 3 RAD Interpretation STUDY: Post-operative left hip xray, 2 views RAD Interpretation: Normal (Left hip prothesis is placed in good position. The structure is well aligned. Osseous structures are intact on visualization. ) Assessment /Plan Assessment Left hip pain 2/2 femoral neck fracture with severe varus angulation 2/2 mechanical fall -pt underwent successful left cemented hip hemiarthroplasty yesterday (11/07/18), performed by Dr. Hamilton. There was minimal blood loss and post-operative radiography visualized proper hardware placement. Pt's hemoglobin and hematocrit today (post-op) are both within normal limits. Pt continues to be afebrile and her last wbc in 11.4, down from yesterday. -Pt expresses desire to be transferred to [facility] for post-op hip therapy upon hospital discharge -stress dosing of Hydrocortisone was stopped this afternoon on day 3. Pt will transfer over to PO daily 20mg Prednisone tomorrow at 9:00, which is her dependent dose at home for pulmonary fibrosis -c/w morphine prn for pain/analgesia (day 4) Chronic pulmonary fibrosis -pt currently at 99% saturation on 4L O2 NC with no signs of exacerbation. Pt's O2 was ordered to be titrated down to a goal of greater than 90% as per pulmonary fibrosis guidelines. -pt is O2 dependent at home with 4L O2 NC -pt is steroid dependent at home with 20mg Prednisone -c/w azithromycin from outpatient (250mg PO MoWeFr) -c/w inhaled medication treatments as ordered -pulmonary service consulted New onset diabetes -Hgb A1c of 7.8% on 11/06/2018 -last measured fasting sGlu was 161, slightly elevated from yesterday -pt now on solid and liquid diet post-surgery -continue with SSI RA -pt receives Abatacept on outpt basis Osteoporosis Vitamin D deficiency -c/w Vit D supplementation as ordered Anxiety -c/w paroxetine medication Benign essential tremor DVT prophylaxis -c/w heparin administration I saw and evaluated the patient. I agree with the findings and plan of care as documented in the resident's note Plan/VTE VTE Prophylaxis Ordered?: Yes VS, I&O, 24H, Fishbone Vital Signs/I&O Vital Signs Date Time Temp Pulse Resp B/P (MAP) Pulse Ox O2 Delivery O2 Flow Rate FiO2 11/08/18 13:54 98.4 107 20 121/82 (95) 97 4.0 11/05/18 22:15 Nasal Cannula I&O- Last 24 Hours up to 6 AM 11/08/18 06:00 Intake Total 1350 ml Output Total 1475 ml Balance -125 ml Laboratory Data 24H LABS Laboratory Tests 2 11/07/18 21:39: Bedside Glucose (Misc Panel) 171H 11/08/18 07:45: Bedside Glucose (Misc Panel) 159H 11/08/18 08:55: Nucleated Red Blood Cells % (auto) 0.0, Anion Gap -5L, Glomerular Filtration Rate 58.6, Blood Urea Nitrogen 18, Creatinine 0.98, Sodium Level 131#L, Potassium Level 4.2, Chloride Level 105, Carbon Dioxide Level 31, Calcium Level 8.9 11/08/18 11:30: Bedside Glucose (Misc Panel) 248H 11/08/18 16:29: Bedside Glucose (Misc Panel) 222H CBC/BMP Laboratory Tests 11/08/18 08:55 Red Blood Count 4.63, Mean Corpuscular Volume 92.4, Mean Corpuscular Hemoglobin 30.2, Mean Corpuscular Hemoglobin Concent 32.7, Red Cell Distribution Width 14.3, Calcium Level 8.9 GEORGETTE HUNT PGY-1 Nov 08, 2018 16:59 GHASSAN JENNINGS MD Nov 09, 2018 15:40
[2018-11-09] MEDS: NORCO, ANEXSIA 5/325MG TABLET (HYDROcodone/ACETAMINOPHEN) PO PRN ×4 (00:07→16:05)
[2018-11-09 06:00] VITALS: BP 144/72
[2018-11-09] MEDS: HumaLOG INSULIN (NovoLOG) PER UNIT SC SCH ×2 (07:30→12:00)
[2018-11-09 07:58] LABS: HEMATOCRIT 35.8 % (36.0-47.0); MEAN CORPUSCULAR HEMOGLOBIN 30.7 pg (27.0-33.0); MEAN CORPUSCULAR VOLUME 93.2 fl (80.0-96.0); PLATELET COUNT, AUTOMATED 240 10^3/uL (150-450); RED BLOOD COUNT 3.84 10^6/uL (4.00-5.40); WHITE BLOOD COUNT 7.5 10^3/uL (4.0-10.0)
[2018-11-09 07:59] LABS: HEMOGLOBIN 11.8 g/dl (12.0-15.5)
[2018-11-09] MEDS ORDERED: PERC5TAB12 PO (08:12)
[2018-11-09] MEDS ORDERED: XARE10TA PO (08:12)
[2018-11-09] MEDS: PARoxetine 20 MG TAB PO SCH (08:16)
[2018-11-09] MEDS: DOCUSATE SODIUM 100 MG CAP PO SCH (08:16)
[2018-11-09] MEDS: VITAMIN D 1,000 INTERNATIONAL UNITS TABLET PO SCH (08:16)
[2018-11-09 08:23] LABS: BLOOD UREA NITROGEN 26 MG/DL (7-18); CALCIUM LEVEL 8.3 MG/DL (8.8-10.2); CARBON DIOXIDE LEVEL 35 MEQ/L (21-32); CHLORIDE LEVEL 104 MEQ/L (98-107); CREATININE FOR GFR 0.74 MG/DL (0.55-1.30); GLOMERULAR FILTRATION RATE > 60.0 (>39); GLUCOSE, FASTING 98 MG/DL (70-100); POTASSIUM SERUM 3.6 MEQ/L (3.5-5.1); SODIUM LEVEL 143 MEQ/L (136-145)
[2018-11-09] MEDS ORDERED: predniSONE 20 MG TAB PO SCH (09:00)
[2018-11-09] MEDS ORDERED: METF500T4 PO (12:59)
[2018-11-09 14:00] VITALS: BP 134/70
--- NOTE | 2018-11-09 21:06 | DS.PDOC ---
Discharge Summary General Date of Admission Nov 05, 2018 at 21:44 Date of Discharge November 09, 2018 Discharge Summary PROCEDURES PERFORMED DURING STAY: Left hip cemented hemiarthroplasty. 11/07/2018 - Dr. Robert Hamilton. ADMITTING/DISCHARGE DIAGNOSES: 1. Left hip pain 2/2 femoral neck fracture with severe varus angulation 2/2 mechanical fall 2. Chronic pulmonary fibrosis 3. New onset diabetes 4. Rheumatoid Arthritis 5. Osteoporosis 6. Vitamin D deficiency 7. Anxiety COMPLICATIONS/CHIEF COMPLAINT: Hip Fracture. HISTORY OF PRESENT ILLNESS: Hannah is a 78-year-old female with a pertinent past medical history of rheumatoid arthritis, osteoporosis, pulmonary fibrosis on chronic PO prednisone, who presented to the [facility] emergency department on 11/05/2018 for left hip fracture after a mechanical fall. She was at home in her kitchen and fell off of a stool landing on her left side. She denied losing consciousness or experiencing a syncopal event. She had minimal amount of hip pain at time of presentation. Patient is chronically short of breath, dependent on 4 L of oxygen nasal cannula HOSPITAL COURSE: Hannah was admitted after XRAY showed a displaced left femoral neck fracture. Orthopedic surgery, Dr. Hamilton, was subsequently consulted and scheduled her for left hip replacement surgery on November 07 with no complications. Due to patients dependency on prednisone at home, she was placed on stress dosing IV hydrocortisone 25 mg every 8 hours for 3 days (November 06-). On hospital day 4, November 09, she was transferred back to her home steroid dependent dose of 20 mg PO prednisone daily. DISCHARGE MEDICATIONS: Please see below. ALLERGIES: Please see below. PHYSICAL EXAMINATION ON DISCHARGE: VITAL SIGNS: Please see below. GENERAL: Positive: Alert, Cooperative Neck Exam: Positive: Supple, +2 carotid pulse w/o bruit Chest Exam: Positive: Other (inspiratory crackles B/L posteriorly on inspiration Heart Exam: Positive: Rate Normal, Regular Rhythm, Normal S1, Normal S2; Negative: Murmurs Abdomen Exam: Positive: Normal bowel sounds (in all four quadrants), Soft (ND); Negative: Tenderness (to palpation of lower extremities b/l) Extremity Exam: Positive: Normal pulses (2+ radial), Tenderness (lower extremities b/l to palpation ); Negative: Edema Skin Exam: Positive: Other skin issue (surgical incision over left hip appears to be healing well with no pronounced erythema, swelling, or discharge) Neuro Exam: Positive: Normal Speech, Sensation Intact (UE and LE intact to light touch b/l), Other (Benign essential tremor of UE b/l. 4/5 muscle strength testing, 5/5 muscle strength testing RLE); Negative: Strength at 5/5 X4 ext (4/5 muscle strength testing of left lower extremity; 5/5 muscle strength testing of right lower extremity. ) Psych Exam: Positive: Mental status NL, Mood NL (pleasant), Oriented x 3 LABORATORY DATA: Please see below. IMAGIN11/05/[address] IMPRESSION: 1. No evidence of fracture. 2. Chronic ischemic changes. Extremities CT IMPRESSION: Fracture of the left femoral neck with severe varus angulation. Cervical spine CT IMPRESSION: 1. Degenerative changes as described above. 2. No evidence of fracture. Hip x-ray Impression: Acute displaced left femoral neck fracture. Chest x-ray Impression: Presumed chronic interstitial changes and fibrosis/scarring. No prior exams for comparison. 11/07/2018 Hip x-ray LEFT HIP, TWO VIEWS: Two views of the left hip performed. There is a left hip prosthesis placed, in good position. The structure are well aligned. Visualized osseous structures are intact. EKG - 2018-11-07 SINUS RHYTHM WITH MARKED SINUS ARRHYTHMIA BORDERLINE LEFT AXIS DEVIATION MINIMAL VOLTAGE CRITERIA FOR LVH, CONSIDER NORMAL VARIANT ACTIVITY: As tolerated per rehab. DIET: Consistent carbohydrate DISCHARGE PLAN: [facility] DISCHARGE INSTRUCTIONS: 1. Upon discharge from rehab follow up with PCP for prophylaxis due to chronic steroid use and immunocompromised state. 2. Follow up with PCP for Recently Diagnosed Diabetes 3. Follow up Dr. Hamilton on 11/23/18 4. Weightbearing as tolerated to LLE with 1 assist and rolling walker. DISCHARGE CONDITION: Stable. I saw and evaluated the patient. I agree with the findings and plan of care as documented in the documenters note. I spent 45 minutes coordinating this patient's discharge.. Vital Signs/I&Os Vital Signs Date Time Temp Pulse Resp B/P (MAP) Pulse Ox O2 Delivery O2 Flow Rate FiO2 11/09/18 14:00 97.8 98 18 134/70 (91) 97 11/09/18 09:00 2.5 11/08/18 19:43 Nasal Cannula I&O- Last 24 Hours up to 6 AM 11/09/18 06:00 Intake Total 1550 ml Output Total 1350 ml Balance 200 ml Laboratory Data Labs 24H Laboratory Tests 2 11/08/18 20:07: Bedside Glucose (Misc Panel) 240H 11/09/18 06:34: Bedside Glucose (Misc Panel) 116H 11/09/18 07:29: Nucleated Red Blood Cells % (auto) 0.0, Anion Gap 4L, Glomerular Filtration Rate > 60.0, Blood Urea Nitrogen 26H, Creatinine 0.74, Sodium Level 143#, Potassium Level 3.6, Chloride Level 104, Carbon Dioxide Level 35H, Calcium Level 8.3L 11/09/18 11:23: Bedside Glucose (Misc Panel) 295H CBC/BMP Laboratory Tests 11/09/18 07:29 Red Blood Count 3.84 L, Mean Corpuscular Volume 93.2, Mean Corpuscular Hemoglobin 30.7, Mean Corpuscular Hemoglobin Concent 33.0, Red Cell Distribution Width 14.6 H, Calcium Level 8.3 L FSBS Laboratory Tests Test 11/08/18 20:07 11/09/18 06:34 11/09/18 11:23 Range/Units Bedside Glucose (Misc Panel) 240 116 295 83-110 MG/DL Discharge Medications Scheduled Abatacept (Orencia Clickjet) 125 Mg/1 Ml Auto.injct, 125 MG SC QWEEK, (Reported) Azithromycin (Azithromycin) 250 Mg Tablet, 250 MG PO 3XW, (Reported) QHS ON WEDNESDAY, WEDNESDAY, WEDNESDAY Megestrol Acetate (Megestrol Acetate) 400 Mg/10 Ml Oral.susp, 600 MG PO DAILY, (Reported) Metformin HCl (Metformin HCl ER) 500 Mg Tab.er.24h, 500 MG PO BID Paroxetine HCl (Paroxetine HCl) 20 Mg Tablet, 20 MG PO DAILY, (Reported) Prednisone (Prednisone) 20 Mg Tablet, 20 MG PO DAILY, (Reported) Rivaroxaban (Xarelto) 10 Mg Tablet, 10 MG PO DAILY Vitamin D (Vitamin D3) 1,000 Unit Tablet, 1,000 UNITS PO DAILY, (Reported) Scheduled PRN Oxycodone HCl/Acetaminophen (Percocet 5-325 mg Tablet) 1 Each Tablet, 1 TAB PO Q4H PRN for PAIN Allergies Coded Allergies: No Known Allergies (Unverified , 11/05/18) GEORGETTE HUNT PGY-1 Nov 09, 2018 17:02 GHASSAN JENNINGS MD Nov 11, 2018 13:19
== END 2018-11-09 16:20 | DRG 470 ==
LOC: M ED 19:22 → M ED INP 21:44 → M MS5PR 11-06
PROVIDERS: ADMIT Family Medicine; ATTEND Internal Medicine
PROC: 0SRS0J9 Replacement of Left Hip Joint, Femoral Surface with Synthetic Substitute, Cemented, Open Approach (ICD-10-PCS; principal; 2018-11-07 14:55)
DX: S72.002A Fracture of unspecified part of neck of left femur, initial encounter for closed fracture (principal); M06.9 Rheumatoid arthritis, unspecified; F41.9 Anxiety disorder, unspecified; E11.9 Type 2 diabetes mellitus without complications; M10.9 Gout, unspecified; E55.9 Vitamin D deficiency, unspecified; Z79.52 Long term (current) use of systemic steroids; W07.XXXA Fall from chair, initial encounter; Y92.009 Unspecified place in unspecified non-institutional (private) residence as the place of occurrence of the external cause; Z79.899 Other long term (current) drug therapy; Z66 Do not resuscitate; Z99.81 Dependence on supplemental oxygen